=== PATIENT | female | born 1965 | race Caucasian/White ===

== ENCOUNTER 2024-07-21 08:21 | Outpatient (RCR) | payer OTHER, SELFPAY | END 2024-07-21 23:59 | disposition home or self-care (01) | LOC: RPT 08:21 | PROVIDERS: ATTENDING PHYSICIAN Radiology Radiation Oncology; FAMILY PHYSICIAN Nurse Practitioner Adult Health | DX: C50.911 Malignant neoplasm of unspecified site of right female breast (principal); Z73.6 Limitation of activities due to disability; M62.81 Muscle weakness (generalized) | CPT/HCPCS: 97163; 97530 ==

== ENCOUNTER 2024-08-19 15:06 | Outpatient (RCR) | payer OTHER, SELFPAY | END 2024-08-19 23:59 | disposition home or self-care (01) | LOC: RPT 15:06 | PROVIDERS: ATTENDING PHYSICIAN Radiology Radiation Oncology; FAMILY PHYSICIAN Nurse Practitioner Adult Health | DX: C50.911 Malignant neoplasm of unspecified site of right female breast (principal); Z73.6 Limitation of activities due to disability; M62.81 Muscle weakness (generalized); R53.83 Other fatigue; Z98.890 Other specified postprocedural states | CPT/HCPCS: 97110; 97112; 97140; 97530 ==

== ENCOUNTER 2024-09-18 15:12 | Outpatient (RCR) | payer OTHER, SELFPAY | END 2024-09-18 23:59 | disposition home or self-care (01) | LOC: RPT 15:12 | PROVIDERS: ATTENDING PHYSICIAN Radiology Radiation Oncology; FAMILY PHYSICIAN Nurse Practitioner Adult Health | DX: C50.911 Malignant neoplasm of unspecified site of right female breast (principal); Z73.6 Limitation of activities due to disability; M62.81 Muscle weakness (generalized); R53.83 Other fatigue; Z98.890 Other specified postprocedural states | CPT/HCPCS: 97110; 97140; 97530 ==

== ENCOUNTER 2024-10-21 14:06 | Outpatient (RCR) | payer OTHER, SELFPAY | END 2024-10-21 23:59 | disposition home or self-care (01) | LOC: RPT 14:06 | PROVIDERS: ATTENDING PHYSICIAN Radiology Radiation Oncology; FAMILY PHYSICIAN Nurse Practitioner Adult Health | DX: C50.911 Malignant neoplasm of unspecified site of right female breast (principal); Z73.6 Limitation of activities due to disability; M62.81 Muscle weakness (generalized); R53.83 Other fatigue; Z98.890 Other specified postprocedural states | CPT/HCPCS: 97140; 97530 ==

== ENCOUNTER 2024-11-20 15:25 | Outpatient (RCR) | payer OTHER, SELFPAY | END 2024-11-20 23:59 | disposition home or self-care (01) | LOC: RPT 15:25 | PROVIDERS: ATTENDING PHYSICIAN Radiology Radiation Oncology; FAMILY PHYSICIAN Nurse Practitioner Adult Health | DX: I89.0 Lymphedema, not elsewhere classified (principal); C50.911 Malignant neoplasm of unspecified site of right female breast; Z73.6 Limitation of activities due to disability; M62.81 Muscle weakness (generalized); R53.83 Other fatigue; M54.50 Low back pain, unspecified; Z98.890 Other specified postprocedural states | CPT/HCPCS: 97110; 97112; 97140; 97530 ==

== ENCOUNTER 2024-12-11 15:05 | Outpatient (RCR) | payer OTHER, SELFPAY | END 2024-12-11 23:59 | disposition home or self-care (01) | LOC: RPT 15:05 | PROVIDERS: ATTENDING PHYSICIAN Radiology Radiation Oncology; FAMILY PHYSICIAN Nurse Practitioner Adult Health | DX: C50.911 Malignant neoplasm of unspecified site of right female breast (principal); Z73.6 Limitation of activities due to disability; M62.81 Muscle weakness (generalized); R53.83 Other fatigue; M54.50 Low back pain, unspecified; Z98.890 Other specified postprocedural states | CPT/HCPCS: 97110; 97112; 97140 ==

== ENCOUNTER 2025-01-01 15:27 | Outpatient (RCR) | payer OTHER, SELFPAY | END 2025-01-01 23:59 | disposition home or self-care (01) | LOC: RPT 15:27 | PROVIDERS: ATTENDING PHYSICIAN Radiology Radiation Oncology; FAMILY PHYSICIAN Nurse Practitioner Adult Health | DX: C50.911 Malignant neoplasm of unspecified site of right female breast (principal); Z73.6 Limitation of activities due to disability; M62.81 Muscle weakness (generalized); R53.83 Other fatigue; M54.50 Low back pain, unspecified; Z98.890 Other specified postprocedural states | CPT/HCPCS: 97140 ==

== ENCOUNTER 2025-02-19 15:02 | Outpatient (RCR) | payer OTHER, SELFPAY | END 2025-02-19 23:59 | disposition home or self-care (01) | LOC: RPT 15:02 | PROVIDERS: ATTENDING PHYSICIAN Radiology Radiation Oncology; FAMILY PHYSICIAN Nurse Practitioner Adult Health | DX: C50.911 Malignant neoplasm of unspecified site of right female breast (principal); Z73.6 Limitation of activities due to disability; M62.81 Muscle weakness (generalized); R53.83 Other fatigue; M54.50 Low back pain, unspecified; Z98.890 Other specified postprocedural states | CPT/HCPCS: 97110; 97530 ==

== ENCOUNTER 2025-03-12 12:37 | Outpatient (RCR) | payer OTHER, SELFPAY | END 2025-03-22 12:38 | disposition home or self-care (01) | LOC: RPT 12:37 | PROVIDERS: ATTENDING PHYSICIAN Radiology Radiation Oncology; FAMILY PHYSICIAN Nurse Practitioner Adult Health | DX: C50.911 Malignant neoplasm of unspecified site of right female breast (principal); Z73.6 Limitation of activities due to disability; M62.81 Muscle weakness (generalized); R53.83 Other fatigue; M54.50 Low back pain, unspecified; Z98.890 Other specified postprocedural states | CPT/HCPCS: 97110; 97140; 97530 ==